=== PATIENT | male | born 1940 | race Caucasian/White ===

== ENCOUNTER → 2020-02-22 12:19 | Outpatient (BNVA) | payer MEDICARE, SELFPAY | PROVIDERS: PCP Family Medicine; Referring Provider Family Medicine; Visit Provider Psychiatry & Neurology Neurology | DX: G95.89 Other specified diseases of spinal cord (principal); I11.0 Hypertensive heart disease with heart failure; I50.9 Heart failure, unspecified; J44.9 Chronic obstructive pulmonary disease, unspecified; F17.290 Nicotine dependence, other tobacco product, uncomplicated | CPT/HCPCS: 99204 ==

== ENCOUNTER 2021-12-17 12:08 | Outpatient (CLI) | payer MEDICARE, SELFPAY ==
--- NOTE | 2021-12-17 12:00 | RT.EKG_ITS ---
APPROVED REPORT Exam: Resting ECG Reason for Exam: afib Patient Location: O HR:65 bpm ECG Measurements Heart Rate 65 AXIS MS 112 P -51 QRSd 136 QRS -68 QT 430 T 62 QTc 448 Conclusion Atrial-ventricular dual-paced complexes...other complexes also detected No further analysis attempted due to paced rhythm
== END 2021-12-17 12:09 | disposition home or self-care (01) ==
LOC: DI.CARD 12:08
PROVIDERS: PCP Family Medicine; Visit Provider Physician Assistant
DX: I42.9 Cardiomyopathy, unspecified (principal); I44.7 Left bundle-branch block, unspecified; I48.91 Unspecified atrial fibrillation; R94.31 Abnormal electrocardiogram [ECG] [EKG]
CPT/HCPCS: 93010

== ENCOUNTER → 2021-12-17 14:13 | Outpatient (BNVA) | payer OTHER, SELFPAY | PROVIDERS: PCP Family Medicine; Referring Provider Family Medicine; Visit Provider Physician Assistant | DX: Z95.810 Presence of automatic (implantable) cardiac defibrillator (principal); I45.9 Conduction disorder, unspecified; I44.7 Left bundle-branch block, unspecified; I42.9 Cardiomyopathy, unspecified; I48.91 Unspecified atrial fibrillation | CPT/HCPCS: 93005; 93284 ==

== ENCOUNTER → 2023-07-21 14:10 | Outpatient (BNVA) | payer MEDICARE, SELFPAY | PROVIDERS: PCP Family Medicine; Referring Provider Family Medicine; Visit Provider Physician Assistant | DX: Z95.810 Presence of automatic (implantable) cardiac defibrillator (principal); I42.9 Cardiomyopathy, unspecified; I42.8 Other cardiomyopathies | CPT/HCPCS: 93284 ==

== ENCOUNTER 2023-11-18 08:22 | Outpatient (CLI) | payer MEDICARE, SELFPAY ==
--- NOTE | 2023-11-18 08:15 | RT.EKG_ITS ---
APPROVED REPORT Exam: Resting ECG Reason for Exam: cardiomyopathy Patient Location: O HR:79 bpm ECG Measurements Heart Rate 79 AXIS IA 142 P 124 QRSd 121 QRS 177 QT 410 T 95 QTc 471 Conclusion A-V dual-paced rhythm with some inhibition...atrial and/or vent inhibition No further analysis attempted due to paced rhythm
== END 2023-11-18 08:23 | disposition home or self-care (01) ==
LOC: DI.CARD 08:25
PROVIDERS: PCP Family Medicine; Visit Provider Internal Medicine Cardiovascular Disease
DX: I50.9 Heart failure, unspecified; Z95.810 Presence of automatic (implantable) cardiac defibrillator
CPT/HCPCS: 93010

== ENCOUNTER → 2023-11-18 10:58 | Outpatient (BNVA) | payer MEDICARE, SELFPAY | PROVIDERS: PCP Family Medicine; Referring Provider Family Medicine; Visit Provider Internal Medicine Cardiovascular Disease | DX: R42 Dizziness and giddiness (principal); I42.8 Other cardiomyopathies; Z95.810 Presence of automatic (implantable) cardiac defibrillator | CPT/HCPCS: 93005; 99214 ==

== ENCOUNTER → 2024-02-01 13:22 | Outpatient (BNVA) | payer MEDICARE, SELFPAY | PROVIDERS: PCP Family Medicine; Referring Provider Family Medicine; Visit Provider Student in an Organized Health Care Education/Training Program | DX: M65.331 Trigger finger, right middle finger (principal); M65.332 Trigger finger, left middle finger; M65.342 Trigger finger, left ring finger; I10 Essential (primary) hypertension; F17.210 Nicotine dependence, cigarettes, uncomplicated | CPT/HCPCS: 99214 ==

== ENCOUNTER 2024-02-10 11:20 | Day surgery (SDC) | payer MEDICARE, SELFPAY ==
[2024-02-10 11:35] VITALS: BP 170/100; PULSE 81; RESP 16; TEMP 36.2; O2SAT 95
--- NOTE | 2024-02-10 11:40 | W.PM.DSUDISC ---
Date of service: 02/10/24 Time of Service: 13:45 Discharge Plan Disposition Patient Disposition: Home Condition: Stable Discharge Details Attending Provider: Juan Luis Burger Primary Care Provider: Tien Mccormack Home Meds and New Rx's Prescriptions: Continued gabapentin 600 mg tablet 600 mg PO TID atorvastatin 20 mg tablet 20 mg PO DAILY carvedilol 25 mg tablet 25 mg PO BID Rx Instructions: must administer with a meal/food sertraline 50 mg tablet 50 mg PO DAILY lisinopril 2.5 mg tablet 5 mg PO DAILY ibuprofen 200 mg capsule 800 mg PO Q8H PRN lisinopril 5 mg tablet 5 mg PO DAILY Patient Comments: TAKE 1 TABLET BY MOUTH DAILY Discharge Instructions Additional Instructions: Surgery: Right middle and ring finger trigger releases Activity: Protect hand for a few weeks. Gently increase finger motion and hand gripping to prevent stiffness. Recommend elevation to minimize swelling and discomfort. Prescriptions: None Resume home medicines, use [id number] Tylenol (acetaminophen) as needed for mild pain and ibuprofen (Motrin) or naproxen (Aleve) as needed for moderate to severe pain and swelling. Dressings: Leave dressing in place for 3 days. May then remove and leave open to air or cover incision with Band-Aid. May get wet after 5 days. Follow-up: 10-[address] Burger Please call the office during business hours with any questions or concerns. Stand Alone Forms: Derek Koenig ([email or web address]) Referrals: Juan Luis Burger MD [ [facility] STAFF PHYSICIAN] - 02/23/24 11:00 am Discharge Orders Discharge Orders: Discharge Order (Routine); Ordered 02/10/24 Ordered By: Ora Phipps DS: Diagnosis Discharge Diagnosis (1) Trigger finger, right middle finger: Status: Acute (2) Trigger finger, right ring finger: Status: Acute
--- NOTE | 2024-02-10 11:44 | ROE_ITS ---
Date of service: 02/10/24 Time of Service: 12:00 Operative Note Operative Note DATE OF PROCEDURE: 02/10/24 PRE-OP DIAGNOSIS: Right middle and ring trigger fingers PROCEDURE: Right 1. Middle finger trigger release, CPT# 06587 2. Ring finger trigger release, CPT# 25914 SURGEON: Juan Luis Burger VALIDATION SPECIALIST: None None ANESTHESIA TYPE: Local By Surgeon Refer to Anesthesia Record ESTIMATED BLOOD LOSS: 1 TOURNIQUET TIME: 0 COMPLICATIONS: None Patient was transported to: same day Patient's condition: stable Indications: Please see complete medical record for details. Procedure Description: In the operating room, the patient was positioned supine on the stretcher. All bony prominences were padded. Preoperative antibiotics were omitted. The correct patient, procedure, and side of the procedure were all verified prior to beginning. Local anesthesia was induced about the sites with 8cc of chloropr ocaine 3% diluted in saline for about 40 mg dose containing epinephrine due to the potential lidocaine allergy. The Right hand was prepped and draped in the usual sterile fashion. Proper analgesia was confirmed. A small volar longitudinal approach was made overlying the middle finger MCP joint. Soft tissues were swept to the sides and retracted to expose the A1 jossue. The release was started centrally with a knife and completed at the proximal and distal margins with tenotomy scissors. Care was taken to protect the flexor tendons. The tendons were inspected and showed mild superficial fraying, but no significant tearing. Appropriate flexor tendon excursion was confirmed. The patient readily demonstrated full range of motion of the finger without triggering. Proper analgesia was confirmed. A small volar longitudinal approach was made overlying the ring finger MCP joint. Soft tissues were swept to the sides and retracted to expose the A1 jossue. The release was started centrally with a knife and completed at the proximal and distal margins with tenotomy scissors. Care was taken to protect the flexor tendons. The tendons were inspected and showed mild bulbous degeneration, but no significant tearing. Appropriate flexor tendon excursion was confirmed. The patient readily demonstrated full range of motion of the finger without triggering. The small incisions were irrigated and then dried. Hemostasis was appropriate. The incisions were closed using 3-0 nylon in a horizontal mattress fashion. Xeroform was applied followed by gauze and the hand was gently compressed with an Eamon bandage. The patient tolerated local anesthesia without complication and was transferred out of the operating room in a stable condition.
[2024-02-10] MEDS: Lactated Ringers 500 ML 30 ML IV (12:10)
[2024-02-10 12:50] VITALS: BP 176/91; PULSE 70; RESP 16; TEMP 36.6; O2SAT 96
== END 2024-02-10 13:30 | disposition home or self-care (01) ==
PROVIDERS: PCP Family Medicine; Visit Provider Student in an Organized Health Care Education/Training Program
PROC: (CPT 26055; principal; 2024-02-10 12:00)
DX: M65.331 Trigger finger, right middle finger (principal); M65.341 Trigger finger, right ring finger
CPT/HCPCS: 26055 ×2; J0171; J2004; J2401

== ENCOUNTER → 2024-02-23 10:45 | Outpatient (BNVA) | payer MEDICARE, SELFPAY | PROVIDERS: PCP Family Medicine; Visit Provider Student in an Organized Health Care Education/Training Program | DX: M65.331 Trigger finger, right middle finger (principal); M65.332 Trigger finger, left middle finger; M65.342 Trigger finger, left ring finger | CPT/HCPCS: 99214 ==

== ENCOUNTER 2024-03-06 01:14 | Outpatient (CLI) | payer MEDICARE, SELFPAY ==
--- NOTE | 2024-03-06 09:30 | DI.US_ITS ---
APPROVED REPORT EXAM: Comprehensive 2D, Doppler, and color-flow Echocardiogram Patient Location: Out-Patient Errand Runner: Dg Martins RDCS (AE) Indications: Check LV function, cardiomyopathy Conclusion Mild concentric left ventricular hypertrophy. Ejection fraction is 55%. Wall motion is normal Normal right ventricular size and function Both atria are mildly dilated Device lead is noted in the right heart Aortic valve is mildly sclerotic and trileaflet with trace regurgitation Mild mitral and tricuspid regurgitation Ascending aorta measures 3.97 cm Wall motion Left Ventricle The left ventricle is normal size. The left ventricular systolic function is normal. The left ventric ular ejection fraction is within the normal range. Mild concentric left ventricular hypertrophy. Ther e is normal LV segmental wall motion. There is no ventricular septal defect visualized. LVEF is 55%. Right Ventricle The right ventricle is normal size. The right ventricular systolic function is normal. Pacemaker lead is present in the right ventricle. Atria The left atrium size is mildly dilated Right atrium is mildly dilated. Atrial septum is thin and hype rmobile Aortic Valve The aortic valve is mildly sclerotic. There is no aortic valvular stenosis. Trace aortic regurgitatio n. Mitral Valve The mitral valve is normal in structure. No evidence of mitral valve stenosis. Mild mitral regurgitat ion. Tricuspid Valve The tricuspid valve is normal in structure. There is no tricuspid valve stenosis. Mild tricuspid regu rgitation. The RVSP is 26.4 mmHg. Pulmonic Valve The pulmonary valve is normal in structure. There is no pulmonic valvular stenosis. Mild pulmonic reg urgitation. Great Vessels The aortic root is normal in size. The ascending aorta is dilated Aortic arch is not well visualized. IVC is normal in size and collapses >50% with inspiration. Pericardium There is no pericardial effusion. 2D Dimensions IVSD d PLAX 1.37 cm M: 0.6-1.2 Ao Root d 3.24 cm M: 3.1 - 3.7 LVPW d PLAX 1.44 cm M: 0.6 - 1.2 Ao Asc Diam d 3.97 cm M: 2.6 - 3.4 LVID d PLAX 4.34 cm M: 4.2 - 5.8 LVDs 3.46 cm M: 2.5 - 4.0 LV EF Teichholz 41.6 % FS 20.23 % LV EDV (Teich) 85.0 mL LV ESV (Teich) 49.6 mL Stroke Vol Index (Teich) 19.78 M-Mode TAPSE 1.99 cm (M/F) >1.7 Auto EF LV EDV A4C 82.9 mL LV EDV A2C 51.2 mL LV EDV BP 65.6 mL LV ESV A4C 49.9 mL LV ESV A2C 29.7 mL LV ESV BP 37.8 mL LVEF(%) A4C 39.9 % LVEF(%) A2C 42.0 % LVEF(%) BP 42.4 % LV SV A4C 33.1 ml LV SV A2C 21.5 ml LV SV BP 27.8 ml LV CO A4C 2.3 L/min LV CO A2C 1.5 L/min LV CO BP 1.9 L/min HR A4C 70.73 BPM HR A2C 68.31 BPM LV EDV Index (BP) LA Volume LA Length A4C 3.3 cm LA Length A2C 3.8 cm LA Area A4C s 8.36 cm2 LA Area A2C s 11.17 cm2 LA Vol A4C A-L 17.76 mL LA Vol A2C A-L 28.17 mL LA Vol Biplane A-L 23.7 mL LA Vol/BSA A4C A-L LA Vol/BSA A2C A-L LA Vol/BSA BP A-L 13.3 mL/m2 LA Vol A4C MOD 16.7 mL LA Vol A2C MOD 26.4 mL LA Vol BP MOD 22.2 mL RA Volume RA Area A4C 11.8 cm2 RA ESV A4C (A-L) 28.7mL RA Vol/BSA A4C A-L RA Length A4C 4.1 cm RA ESV A4C (MOD) 25.3mL LV Diastology MV E' medial 0.068 (>0.07 m/s) MV E Vmax 0.79 (0.4-1.3 m/s) MV E' lateral 0.054 (>0.1 m/s) Aortic Valve AoV Vmax 1.18 m/s LVOT Vmax 0.76 m/s AoV Peak Grad 5.6 mmHg LVOT Peak Grad 2.3 mmHg AoV Area (Vmax) 1.97 cm2 LVOT VTI 0.163 m AoV VTI 0.225 m LVOT Mean Grad 1.2 mmHg AoV [place]. 0.80 m/s LVOT SV 50.28 mL AoV Mean Grad 2.9 mmHg LVOT Diam s 1.95 cm AoV Area (VTI) 2.24 cm2 AV Regurg Peak Gr. 5.59 mmHg Velocity Ratio 0.64 Mitral Valve MV Vmax TIPS 0.90 m/s MV Mean Grad 0.9 (<2mmHg) MV VTI 0.206 m Pulmonary Valve PV Vmax 1.03 (0.5-1.5 m/s) RVOT Vmax 0.47 m/s PV Peak Grad 4.2 mmHg RVOT Peak Gr. 0.9 mmHg PV [place] 0.67 m/s RVOT VTI 0.066 m PV Mean Grad 2.1 mmHg RVOT Mean Gr. 0.5 mmHg Tricuspid Valve RA Pressure 3.00 mmHg TR Vmax 2.42 m/s TR Peak Grad 23.4 mmHg RVSP (TR) 26.4 mmHg
== END 2024-03-06 01:34 ==
LOC: DI 01:14
PROVIDERS: PCP Family Medicine; Visit Provider Internal Medicine Cardiovascular Disease
DX: I42.9 Cardiomyopathy, unspecified (principal)
CPT/HCPCS: 93306

== ENCOUNTER 2024-03-10 13:20 | Day surgery (SDC) | payer MEDICARE, SELFPAY ==
--- NOTE | 2024-03-10 07:17 | W.PM.OP ---
Date of service: 03/10/24 Time of Service: 14:00 Operative Note Operative Note DATE OF PROCEDURE: 02/10/24 PRE-OP DIAGNOSIS: Left middle and ring trigger fingers PROCEDURE: Left 1. Middle finger trigger release, CPT# 95748 2. Ring finger trigger release, CPT# 64306 SURGEON: Juan Luis Burger EMBEDDED FIRMWARE DEVELOPER: None None ANESTHESIA TYPE: Local By Surgeon Refer to Anesthesia Record ESTIMATED BLOOD LOSS: 3 TOURNIQUET TIME: 0 COMPLICATIONS: None Patient was transported to: same day Patient's condition: stable Indications: Please see complete medical record for details. Procedure Description: In the operating room, the patient was positioned supine on the stretcher. All bony prominences were padded. Preoperative antibiotics were omitted. The correct patient, procedure, and side of the procedure were all verified prior to beginning. Local anesthesia was induced about the sites with 8cc of chloroprocaine 3% diluted in saline for about 40 mg dose containing epinephrine due to the potential lidocaine allergy. The Left hand was prepped and draped in the usual sterile fashion. Proper analgesia was confirmed. A small volar longitudinal approach was made overlying the middle finger MCP joint. Soft tissues were swept to the sides and retracted to expose the A1 jossue. The release was started centrally with a knife and completed at the proximal and distal margins with tenotomy scissors. Care was taken to protect the flexor tendons. The tendons were inspected and showed mild superficial fraying, but no significant tearing. Appropriate flexor tendon excursion was confirmed. The patient readily demonstrated full range of motion of the finger without triggering. Proper analgesia was confirmed. A small volar longitudinal approach was made overlying the ring finger MCP joint. Soft tissues were swept to the sides and retracted to expose the A1 jossue. The release was started centrally again with a knife and completed at the proximal and distal margins with tenotomy scissors. Care was taken to protect the flexor tendons. The tendons were inspected and showed some bulbous degeneration, but no significant tearing. Appropriate flexor tendon excursion was confirmed. The patient readily demonstrated full range of motion of the finger without triggering. The small incisions were irrigated and then dried. Hemostasis was appropriate although there was increased generalized drainage on this side than the contralateral hand previously. Gauze pressure was held in the palm until it was vacuum drier tender. The incisions were closed using 3-0 nylon in a horizontal mattress fashion. Xeroform was applied followed by gauze and the hand was gently compressed with an Eamon bandage. The patient tolerated local anesthesia without complication and was transferred out of the operating room in a stable condition.
--- NOTE | 2024-03-10 07:23 | W.PM.DSUDISC ---
Date of service: 03/10/24 Time of Service: 14:46 Discharge Plan Disposition Patient Disposition: Home Condition: Stable Discharge Details Attending Provider: Juan Luis Burger Primary Care Provider: Tien Mccormack Home Meds and New Rx's Prescriptions: Continued gabapentin 600 mg tablet 600 mg PO TID atorvastatin 20 mg tablet 20 mg PO DAILY carvedilol 25 mg tablet 25 mg PO BID Rx Instructions: must administer with a meal/food sertraline 50 mg tablet 50 mg PO DAILY lisinopril 2.5 mg tablet 5 mg PO DAILY ibuprofen 200 mg capsule 800 mg PO Q8H PRN lisinopril 5 mg tablet 5 mg PO DAILY Patient Comments: TAKE 1 TABLET BY MOUTH DAILY Discharge Instructions Additional Instructions: Surgery: Left middle and ring finger trigger releases Activity: Protect hand for a few weeks. Gently increase finger motion and hand gripping to prevent stiffness. Recommend elevation to minimize swelling and discomfort. Prescriptions: None Resume home medicines, use [id number] Tylenol (acetaminophen) as needed for mild pain and ibuprofen (Motrin) or naproxen (Aleve) as needed for moderate to severe pain and swelling. Dressings: Leave dressing in place for 3 days. May then remove and leave open to air or cover incision with Band-Aid. May get wet after 5 days. Follow-up: 10-[address] Burger Please call the office during business hours with any questions or concerns. Discharge Orders Discharge Orders: Discharge Order (Routine); Ordered 03/10/24 Ordered By: Ora Phipps DS: Diagnosis Discharge Diagnosis (1) Trigger finger, left middle finger: Status: Acute (2) Trigger finger, left ring finger: Status: Acute
[2024-03-10 13:31] VITALS: BP 146/81; PULSE 75; RESP 16; TEMP 36; O2SAT 96
[2024-03-10 14:40] VITALS: PULSE 74; RESP 16; TEMP 36.2; O2SAT 97
== END 2024-03-10 14:56 | disposition home or self-care (01) ==
LOC: SUR 13:20
PROVIDERS: PCP Family Medicine; Visit Provider Student in an Organized Health Care Education/Training Program
PROC: (CPT 26055; principal; 2024-03-10 11:45)
DX: M65.342 Trigger finger, left ring finger (principal); M65.332 Trigger finger, left middle finger
CPT/HCPCS: 26055 ×2; J0171; J2401

== ENCOUNTER → 2024-03-21 10:37 | Outpatient (BNVA) | payer MEDICARE, SELFPAY | PROVIDERS: PCP Family Medicine; Visit Provider Student in an Organized Health Care Education/Training Program | DX: Z47.89 Encounter for other orthopedic aftercare (principal) | CPT/HCPCS: 99024 ==

== ENCOUNTER → 2024-05-18 10:44 | Outpatient (BNVA) | payer MEDICARE, SELFPAY | PROVIDERS: PCP Family Medicine; Referring Provider Family Medicine; Visit Provider Internal Medicine Cardiovascular Disease | DX: I42.8 Other cardiomyopathies (principal); F17.210 Nicotine dependence, cigarettes, uncomplicated; Z95.810 Presence of automatic (implantable) cardiac defibrillator | CPT/HCPCS: 99213 ==

== ENCOUNTER → 2024-07-19 14:15 | Outpatient (BNVA) | payer MEDICARE, SELFPAY | PROVIDERS: PCP Family Medicine; Visit Provider Registered Nurse | DX: I42.8 Other cardiomyopathies (principal); Z95.810 Presence of automatic (implantable) cardiac defibrillator | CPT/HCPCS: 93284 ==

== ENCOUNTER → 2025-01-17 14:42 | Outpatient (BNVA) | payer MEDICARE, SELFPAY | PROVIDERS: PCP Family Medicine; Referring Provider Family Medicine; Visit Provider Student in an Organized Health Care Education/Training Program | DX: I45.9 Conduction disorder, unspecified (principal); I42.8 Other cardiomyopathies; Z45.02 Encounter for adjustment and management of automatic implantable cardiac defibrillator | CPT/HCPCS: 93284 ==

== ENCOUNTER → 2025-05-18 10:43 | Outpatient (BNVA) | payer MEDICARE, SELFPAY | PROVIDERS: PCP Family Medicine; Visit Provider Internal Medicine Cardiovascular Disease | DX: I42.8 Other cardiomyopathies (principal); Z95.810 Presence of automatic (implantable) cardiac defibrillator | CPT/HCPCS: 99213 ==